=== PATIENT | female | born 1970 | race Two or more races ===

== ENCOUNTER → 2024-03-30 | Emergency (ER) | payer OTHER ==
[~2024-03-30] VITALS: Ht 162.6 cm; Wt 59.4 kg
[~2024-03-30] MED LIST: LEVOTHYROXINE100 MCG PO; ROSUVASTATIN CA20 MG PO
[2024-03-30 16:57] VITALS: BP 149/89; O2SAT 96
== END | disposition left against medical advice (07) ==
LOC: ER 16:39
DX: Z53.21 Procedure and treatment not carried out due to patient leaving prior to being seen by health care provider (principal)